=== PATIENT | female | born 1985 | race Caucasian/White ===

== ENCOUNTER → 2017-02-26 15:46 | Emergency (ER) | payer OTHER ==
[~2017-02-26 15:46] MED LIST: Aspirin Low Dose CHEW TAB* 81 MG PO ONE
--- NOTE | 2017-02-26 16:22 | ED ---
Palpitations / Dysrhythmia - HPI Summary HPI Summary: Patient is a 32 yo F who presents to the ED with CC of feelings of palpitations , SOB, anxiety symptoms x 1 week which are intermittent but worsening. Worse with nothing, better with spontaneous resolution. Recently diagnosed with PNA 1 week ago and treated with z-juarez with moderate improvement. Denies travel, denies OCP use. Endorses smoking. Denies weakness, numbness. Denies neurological symptoms or GL[place]. She has had hx of palpitations in the past but notes to history of anxiety and has had similar symptoms, however has never had SOB. Denies chest pain. Denies personal history of cardiac issues, but strong family history including aunt, mother and grandfather with CAD, enlarged heart and DC respectively. Denies urinary symptoms, abdominal pain. Endorses cough, but is often present at baseline d/t smoking history. Denies history of alcohol abuse or hypothyroidism. Denies drug use. Takes clonopin for anxiety. Took 2 tabs today without improvement of palpitations. - History of Current Complaint Chief Complaint: EDShortnessOfBreath Time Seen by Provider: 02/26/17 16:07 Hx Obtained From: Patient Onset/Duration: Gradual Onset Timing: Constant Severity Initially: Severe Severity Currently: Severe Character: Irregular, Fluttering Aggravating: Nothing Alleviating: Nothing Associated Signs & Symptoms: Lightheadedness - Risk Factors Cardiac: Family History Pulmonary Embolism: Smoking Atrial Fibrillation: Negative - Allergy/Home Medications Allergies/Adverse Reactions: Allergies Allergy/AdvReac Type Severity Reaction Status Date / Time No Known Allergies Allergy Verified 02/26/17 15:50 PMH/Surg Hx/FS Hx/Imm Hx Previously Healthy: Yes - Immunization History Hx Pertussis Vaccination: No Immunizations Up to Date: Unable to Obtain/Confirm Infectious Disease History: No Infectious Disease History: Denies: Traveled Outside the [place] in Last 30 Days - Social History Occupation: Employed Full-time Lives: With Family Alcohol Use: None Hx Substance Use: No Substance Use Type: Reports: None Hx Tobacco Use: Yes Smoking Status (MU): Heavy Every Day Tobacco Smoker Type: Cigarettes Review of Systems Positive: Chills. Negative: Fever, Fatigue, Skin Diaphoresis Negative: Photophobia, Blurred Vision, Diplopia Negative: Dental Pain, Sore Throat, Nasal Discharge Positive: Palpitations Positive: Shortness Of Breath, Cough Negative: Abdominal Pain, Vomiting, Diarrhea Genitourinary: Negative Positive: no symptoms reported, see HPI Musculoskeletal: Negative Skin: Negative Neurological: Negative Positive: Anxious All Other Systems Reviewed And Are Negative: Yes Physical Exam Triage Information Reviewed: Yes Vital Signs On Initial Exam: Initial Vitals Temp Pulse Resp BP Pulse Ox 98.1 F 82 16 143/79 100 02/26/17 15:50 02/26/17 15:50 02/26/17 15:50 02/26/17 15:50 02/26/17 15:50 Vital Signs Reviewed: Yes Appearance: Positive: Well-Appearing, Well-Nourished Skin: Positive: Warm, Skin Color Reflects Adequate Perfusion Head/Face: Positive: Normal Head/Face Inspection Eyes: Positive: EOMI, ELGIN, Conjunctiva Clear Neck: Positive: Supple, No Lymphadenopathy Respiratory/Lung Sounds: Positive: Clear to Auscultation, Breath Sounds Present Cardiovascular: Positive: IRR Musculoskeletal: Positive: Strength/ROM Intact Neurological: Positive: Speech Normal Psychiatric: Positive: Normal Diagnostics - Vital Signs Vital Signs Temp Pulse Resp BP Pulse Ox 02/26/17 15:50 98.1 F 82 16 143/79 100 - Laboratory Result Diagrams: 02/26/17 16:25 02/26/17 16:25 Lab Statement: Any lab studies that have been ordered have been reviewed, and results considered in the medical decision making process. Course/Dx - Course Course Of Treatment: During the course of treatment, EKG and chest xray obtained. EKG shows 1 PVC. Otherwise WNL. Chest xray shows no abnormalities. The palpitations could be a reaction to the recent z-juarez prescribed for PNA or a reaction from the PNA. Labs appear to be WNL including trop. d-dimer negative. She will follow up with PCP tomorrow as scheduled and cardiology referral is given. Aspirin withheld d/t 1 week of palpitations with no chest pain. Thyroid panel WNL. History of anxiety and episodes could be d/t recent stressors. - Diagnoses Provider Diagnoses: Palpitations Discharge - Discharge Plan Condition: Stable Disposition: HOME Patient Education Materials: Palpitations (ED) Referrals: Carmen Bright MD [Primary Care Provider] - Marquita Garland MD [Medical Doctor] - Additional Instructions: Follow up with cardiology as needed I have given you a referral Please follow up with your PCP tomorrow and discuss possible side effects to your current medications
[2017-02-26 16:36] LABS: Hematocrit 44 % (35-47); Hemoglobin 15.2 g/dl (12.0-16.0); Mean Corpuscular HGB Conc 35 g/dl (31-36); Mean Corpuscular Hemoglobin 32 pg (27-31); Mean Corpuscular Volume 92 fL (80-97); Mean Platelet Volume 10 um3 (7.4-10.4); Red Blood Count 4.78 10^6/ul (4.0-5.4); Red Cell Distribution Width 14 % (10.5-15); White Blood Count 9.3 10^3/ul (3.5-10.8)
[2017-02-26 16:52] LABS: ALT 10 U/L (7-52); AST 13 U/L (13-39); Albumin 4.8 g/dL (3.2-5.2); Alkaline Phosphatase 66 U/L (34-104); Anion Gap 8 mmol/L (2-11); BUN/Creatinine Ratio 9.3 (8-20); Blood Urea Nitrogen 9 mg/dL (6-24); CO2 Carbon Dioxide 27 mmol/L (22-32); Calcium 9.3 mg/dL (8.6-10.3); Chloride 101 mmol/L (101-111); EGFR African American 85.6 (>60); EGFR Non-African American 66.6 (>60); Globulin 3.2 g/dL (2-4); Glucose 88 mg/dL (70-100); Magnesium 2.1 mg/dL (1.9-2.7); Potassium 3.4 mmol/L (3.5-5.0); Sodium 136 mmol/L (133-145)
[2017-02-26 16:54] LABS: Troponin I 0.01 ng/mL (<0.04)
--- NOTE | 2017-02-26 17:23 | RAD ---
INDICATION: Chest pain. COMPARISON: There are no prior studies available for comparison. TECHNIQUE: A portable view of the chest was obtained. FINDINGS: Cardiac and mediastinal contours appear to be within normal limits. The lungs are clear. No pleural effusion is seen. IMPRESSION: NO EVIDENCE FOR ACUTE DISEASE.
[2017-02-26 17:25] LABS: T4 8.92 mcg/mL (6.09-12.23)
[2017-02-26 17:28] LABS: TSH (Thyroid Stimulating Horm) 0.65 mcIU/mL (0.34-5.60)
[2017-02-26 18:07] VITALS: BP 107/63
== END | disposition home or self-care (01) ==
LOC: ED 15:46
DX: R00.2 Palpitations (principal); F41.9 Anxiety disorder, unspecified; F17.210 Nicotine dependence, cigarettes, uncomplicated
CPT/HCPCS: 36415; 71010; 80053; 82553; 83605; 83735; 84436; 84443; 84484; 84702; 85025; 85379; 93005; 99282

== ENCOUNTER 2017-03-20 00:19 | Emergency (ER) | payer OTHER ==
[2017-03-20 00:26] VITALS: BP 126/70
== END 2017-03-20 01:58 | disposition left against medical advice (07) ==
LOC: ED 00:19
DX: R00.2 Palpitations (principal); Z53.21 Procedure and treatment not carried out due to patient leaving prior to being seen by health care provider

== ENCOUNTER 2018-11-04 17:39 | Emergency (ER) | payer SELFPAY ==
[2018-11-04 17:48] VITALS: BP 123/84
[2018-11-04 18:16] LABS: Urine Appearance Cloudy; Urine Bacteria 2+ (Absent); Urine Bilirubin Negative (Negative); Urine Blood 3+ (Negative); Urine Color Amber; Urine Glucose Negative (Negative); Urine Ketones Negative (Negative); Urine Nitrite Positive (Negative); Urine Protein 1+(30 mg/dL) (Negative); Urine Red Blood Cell 1+(3-5/hpf) (Absent); Urine Specific Gravity 1.016 (1.010-1.030); Urine Squamous Epithelial Cell Present (Absent); Urine Urobilinogen Negative (Negative); Urine White Blood Cell 3+(>20/hpf) (Absent)
--- NOTE | 2018-11-07 09:19 | PN ---
Progress Note - Progress Note Date of Service: 11/04/18 Note: Pt. checked into ER 11/04 for chest pain. U/A was collected in waiting room and culture today growing >100k e. coli. Per nursing report pt. LWBS from waiting room. I called pt.'s PCP office today and spoke with nursing staff. Culture faxed ([phone]) and they will f.u with pt. regarding treatment and f.u.
== END 2018-11-04 18:56 | disposition left against medical advice (07) ==
LOC: ED 17:39
DX: R07.9 Chest pain, unspecified (principal); Z53.21 Procedure and treatment not carried out due to patient leaving prior to being seen by health care provider; N39.0 Urinary tract infection, site not specified; B96.29 Other Escherichia coli [E. coli] as the cause of diseases classified elsewhere
CPT/HCPCS: 81003; 81015; 87077; 87086; 87186; 99282

== ENCOUNTER 2018-11-10 10:24 | Emergency (ER) | payer SELFPAY ==
[2018-11-10 10:48] LABS: ABS Eosinophils 0.2 10^3/ul (0-0.6); ABS Lymphocytes 2.3 10^3/ul (1.0-4.8); ABS Monocytes 0.6 10^3/ul (0-0.8); ABS Neutrophils 8.4 10^3/ul (1.5-7.7); Eosinophil % 1.8 %; Hematocrit 44 % (35-47); Hemoglobin 15.2 g/dL (12.0-16.0); Lymphocyte % 19.6 %; Mean Corpuscular HGB Conc 35 g/dL (31-36); Mean Corpuscular Hemoglobin 32 pg (27-31); Mean Corpuscular Volume 92 fL (80-97); Mean Platelet Volume 9.8 fL (7.4-10.4); Platelet Count 261 10^3/uL (150-450); Red Blood Count 4.76 10^6 /uL (3.70-4.87); Red Cell Distribution Width 14 % (10-15); White Blood Count 11.5 10^3/uL (3.5-10.8)
[2018-11-10 10:58] LABS: INR 1.09 (0.82-1.09)
[2018-11-10 11:09] LABS: ALT 13 U/L (7-52); AST 13 U/L (13-39); Albumin 4.8 g/dL (3.2-5.2); Albumin/Globulin Ratio 1.5 (1-3); Alkaline Phosphatase 74 U/L (34-104); Anion Gap 8 mmol/L (2-11); BUN/Creatinine Ratio 7.7 (8-20); Blood Urea Nitrogen 7 mg/dL (6-24); CO2 Carbon Dioxide 25 mmol/L (22-32); Calcium 9.5 mg/dL (8.6-10.3); Chloride 105 mmol/L (101-111); EGFR African American 86.1 (>60); EGFR Non-African American 71.2 (>60); Globulin 3.1 g/dL (2-4); Glucose 97 mg/dL (70-100); Potassium 3.8 mmol/L (3.5-5.0); Sodium 138 mmol/L (135-145); Total Protein 7.9 g/dL (6.4-8.9)
[2018-11-10 11:14] LABS: HCG Pregnancy < 0.60 mIU/mL
--- NOTE | 2018-11-10 11:33 | ED ---
Complex/Multi-Sys Presentation - HPI Summary HPI Summary: This patient is a 33 year old F presenting to ED who p/w multiple complaints. First patient reports mid sternal CP for 3 days, that feels pressure like. No hx cardiac problems, no hx DVT/PE, not on oral contraceptives. Patient has a history of GERD but missed her appointment for an endoscopy and reports chronic bloating. Patient recently had an US for thyroid nodules and wants to know of the results but hasnt gotten them yet. She states her PCP told her she had a UTI for which she is on keflex and finishing today. In the past few months, patient has had minor weight gain. She also reports boils in her left side w a hx or MRSA. The patient rates her chest pain 6/10 in severity, pressure like, no radiation, no SOB. Symptoms aggravated by nothing. Symptoms alleviated by nothing. Patient reports abdominal bloating, lightheadedness, panic attacks, palpitations, right eye twitching intermittently. She would like neurology f/u for her Chiari malformation but denies current neuro complaints. Patient denies vomiting, diarrhea, constipation, dysuria, SI/HI. - History Of Current Complaint Chief Complaint: EDChestPainROMI Time Seen by Provider: 11/10/18 10:41 Hx Obtained From: Patient Onset/Duration: Lasting Days - 3 days, Still Present Timing: Constant Severity Currently: Moderate Severity Initially: Moderate Location: Pain At: - Mid-sternal Aggravating Factor(s): Nothing Alleviating Factor(s): Nothing Associated Signs And Symptoms: Positive: Abdominal Pain, Other - Positive: abdominal bloating, lightheadedness, panic attacks, palpitations, right eye twitching. Negative: vomiting, diarrhea, constipation, dysuria, SI/HI - Allergies/Home Medications Allergies/Adverse Reactions: Allergies Allergy/AdvReac Type Severity Reaction Status Date / Time levofloxacin [From Levaquin] Allergy Rash Verified 11/04/18 17:50 nitrofurantoin Allergy See Comment Verified 11/04/18 17:50 sulfamethoxazole Allergy Rash Verified 11/04/18 17:50 [From Bactrim] trimethoprim [From Bactrim] Allergy Rash Verified 11/04/18 17:50 Home Medications: Home Medications Albuterol HFA INHALER* [Ventolin HFA Inhaler*] 1 puff INH Q4H PRN 11/10/18 [ History Confirmed 11/10/18] Cholecalciferol TAB* [Vitamin D TAB*] 400 unit PO DAILY 11/10/18 [History Confirmed 11/10/18] FLUoxetine CAP* [PROzac CAP*] 10 mg PO DAILY 11/10/18 [History Confirmed ] Omeprazole 20 mg PO DAILY 11/10/18 [History Confirmed 11/10/18] Ranitidine TAB (NF) [Zantac TAB (NF)] 150 mg PO BID 11/10/18 [History Confirmed 11/10/18] Sucralfate [Carafate] 1 gm PO QID 11/10/18 [History Confirmed 11/10/18] clonazePAM [Klonopin] 0.5 mg PO BID 11/10/18 [History Confirmed 11/10/18] PMH/Surg Hx/FS Hx/Imm Hx Endocrine/Hematology History: Reports: Hx Thyroid Disease - Thyroid nodules GI History: Reports: Hx Gastroesophageal Reflux Disease Sensory History: Denies: Hx Legally Blind, Hx Deafness Opthamlomology History: Denies: Hx Legally Blind EENT History: Denies: Hx Deafness Psychiatric History: Reports: Hx Panic Disorder - Surgical History Surgery Procedure, Year, and Place: cholecystectomy Infectious Disease History: No Infectious Disease History: Denies: Traveled Outside the [place] in Last 30 Days - Family History Known Family History: Positive: Cardiac Disease - [place], cardiomegaly, Diabetes, Other - Stroke - Social History Alcohol Use: None Hx Substance Use: No Substance Use Type: Reports: None Hx Tobacco Use: Yes Smoking Status (MU): Heavy Every Day Tobacco Smoker Type: Cigarettes Review of Systems Eyes: Other - Right eye twitching Positive: Palpitations, Chest Pain - Mid-sternal Gastrointestinal: Negative - Constipation, Other - Abdominal bloating Negative: Vomiting, Diarrhea Negative: dysuria Psychological: Other - Panic attacks Positive: Other - Negative: SI/HI All Other Systems Reviewed And Are Negative: Yes Physical Exam - Summary Physical Exam Summary: Constitutional: Well-developed, Well-nourished, Alert. (-) Distressed Skin: small superficial abscesses distal to the left axilla on lateral chest wall. HENT: Normocephalic; Atraumatic, poor dentition. No thyromegaly Eyes: Conjunctiva normal Neck: Musculoskeletal ROM normal neck. (-) JVD, (-) Stridor, (-) Nuchal rigidity Cardio: Rhythm regular, rate normal, Heart sounds normal; Intact distal pulses; Radial pulses are 2+ and symmetric. (-) Murmur Pulmonary/Chest wall: Effort normal. (-) Respiratory distress, (-) Wheezes, (-) Rales Abd: Soft, (-) tenderness, (-) Distension, (-) Guarding, (-) Rebound Musculoskeletal: (-) Edema Lymph: (-) Cervical adenopathy Neuro: Alert, Oriented x3 Psych: Mood and affect Normal Triage Information Reviewed: Yes Vital Signs On Initial Exam: Initial Vitals Temp Pulse Resp BP Pulse Ox 98.0 F 68 16 134/82 100 11/10/18 10:26 11/10/18 10:26 11/10/18 10:26 11/10/18 10:26 11/10/18 10:26 Vital Signs Reviewed: Yes Diagnostics - Vital Signs Vital Signs Temp Pulse Resp BP Pulse Ox 11/10/18 11:11 60 13 103/54 97 11/10/18 11:07 61 16 92/69 96 11/10/18 11:00 69 13 97 11/10/18 10:58 16 11/10/18 10:36 118/97 11/10/18 10:26 98.0 F 68 16 134/82 100 - Laboratory Lab Results: Lab Results 11/10/18 11/10/18 11/10/18 Range/Units 10:39 10:39 10:39 WBC 11.5 H (3.5-10.8) 10^3/uL RBC 4.76 (3.70-4.87) 10^6 /uL Hgb 15.2 (12.0-16.0) g/dL Hct 44 (35-47) % MCV 92 (80-97) fL MCH 32 H (27-31) pg MCHC 35 (31-36) g/dL RDW 14 (10-15) % Plt Count 261 (150-450) 10^3/uL MPV 9.8 (7.4-10.4) fL Neut % (Auto) 73.1 % Lymph % (Auto) 19.6 % [place] % (Auto) 5.2 % Eos % (Auto) 1.8 % Baso % (Auto) 0.3 % Absolute Neuts (auto) 8.4 H (1.5-7.7) 10^3/ul Absolute Lymphs (auto) 2.3 (1.0-4.8) 10^3/ul Absolute Monos (auto) 0.6 (0-0.8) 10^3/ul Absolute Eos (auto) 0.2 (0-0.6) 10^3/ul Absolute Basos (auto) 0.0 (0-0.2) 10^3/ul Absolute Nucleated RBC 0.0 10^3/ul Nucleated RBC % 0.0 INR (Anticoag Therapy) 1.09 (0.82-1.09) Sodium 138 (135-145) mmol/L Potassium 3.8 (3.5-5.0) mmol/L Chloride 105 (101-111) mmol/L Carbon Dioxide 25 (22-32) mmol/L Anion Gap 8 (2-11) mmol/L BUN 7 (6-24) mg/dL Creatinine 0.91 (0.51-0.95) mg/dL Est GFR ( Amer) 86.1 (>60) Est GFR (Non-Af Amer) 71.2 (>60) BUN/Creatinine Ratio 7.7 L (8-20) Glucose 97 (70-100) mg/dL Calcium 9.5 (8.6-10.3) mg/dL Total Bilirubin 0.60 (0.2-1.0) mg/dL AST 13 (13-39) U/L ALT 13 (7-52) U/L Alkaline Phosphatase 74 (34-104) U/L Troponin I 0.00 (<0.04) ng/mL Total Protein 7.9 (6.4-8.9) g/dL Albumin 4.8 (3.2-5.2) g/dL Globulin 3.1 (2-4) g/dL Albumin/Globulin Ratio 1.5 (1-3) TSH Pending Beta HCG, Quant < 0.60 mIU/mL Result Diagrams: 11/10/18 10:39 11/10/18 10:39 Lab Statement: Any lab studies that have been ordered have been reviewed, and results considered in the medical decision making process. - Radiology CXR Radiology Interpretation Completed By: Radiologist Summary of Radiographic Findings: Elevated lung volumes suggest potential obstructive lung disease. No acute cardiopulmonary process evident. Dr. Sequeira has reviewed this radiology report. - EKG 1028 Cardiac Rate: NL - 67 BPM EKG Rhythm: Sinus Rhythm ST Segment: Normal Ectopy: None EKG Comparison: No Significant Change Summary of EKG Findings: An EKG at 1027 reveals normal sinus rhythm 67 BPM, nml axis, nml intervals. No STEMI. No acute changes. Similar to previous taken 2017. Re-Evaluation - Re-Evaluation First Eval Re-Evaluation Time: 12:40 Comment: labs unremarkable. patient to follow up w PCP and specialists PRN. Clinda sent to pharmacy Complex Multi-Symp Course/Dx Course Of Treatment: 33 year-old female with a history of Chiari malformation, anxiety, GERD who presents with multiple complaints. - chest pressure. Chest Pain DDX: The patient is well appearing, with stable vitals. Given the patient 's clinical presentation, highest on differential is atypical CP. Although less likely, differential also includes the following: --Pneumothorax: Equal breath sounds, story inconsistent since gradual onset of symptoms. CXR shows no evidence of pneumothorax. Unlikely. --Cardiac tamponade: The history and physical are not concerning for tamponade. No Pulsus Paradoxus, no tachypnea. Unlikely. --Mediastinitis or esophageal rupture: The history is not consistent , as the patient has had no recent history of significant wretching, instrumentation, or mediastinal surgeries. Unlikely. --Aortic dissection: The patient does not describe the classical tearing chest pain radiating into the back, and the CXR does not show mediastinal widening or other signs of aortic dissection. Unlikely. --PE: Vitals wnl (not hypoxic, tachycardic or tachypneic) . --ACS: The initial EKG shows no ischemic changes. The initial troponin is not elevated. UTI patient denies complaints, patient finishing Keflex at this time. Thyroid: History of thyroid nodules, check TSH, can follow up in primary care clinic for this. Abscess/cellulitis - several superficial boils to the left lateral chest wall below the axilla, no systemic signs of infection , will send home on clindamycin given history of MRSA. GERD - patient reports history of GERD, missed her most recent endoscopy, will give her GI follow-up. No change in her abdominal pain or GI complaints. Neuro - patient with a history of Chiari malformation, no current neurologic complaints. Will get her neurology follow-up. Anxiety - patient denies SI or HI, will get her mental health follow-up - Diagnoses Provider Diagnoses: GERD (gastroesophageal reflux disease), Chest pain, History of thyroid nodule, Anxiety, Abscess Discharge - Sign-Out/Discharge Documenting (check all that apply): Patient Departure - Discharge Patient Received Moderate/Deep Sedation with Procedure: No - Discharge Plan Condition: Stable Disposition: HOME Prescriptions: Clindamycin Cap(NF) [Clindamycin Cap 300 mg Cap(NF)] 300 mg PO Q6H 7 Days #28 cap Patient Education Materials: Chest Pain (ED), Gastroesophageal Reflux Disease ( ED), Thyroid Nodules (ED), Abscess (ED), Anxiety (ED) Referrals: [facility] [Outside] - 3 Days Sotero Berumen MD [Medical Doctor] - 3 Days Papito Weber MD [Medical Doctor] - 3 Days Evan Cid MD [Medical Doctor] - 3 Days Additional Instructions: You were seen in the emergency department for several things. We will treat you with clindamycin for your cellulitis/abscesses. You can follow-up withour neurologist, staff submarine warfare officer outpatient. We will also give you mental health follow-up. Please follow up with your primary care doctor or [facility] regarding her thyroid. Your thyroid test here was normal If any studies were not completed at the time of discharge you will be called with the relevant results. Please follow up with your primary care doctor in next 2-3 days and return to emergency department for worsening or concerning symptoms. - Billing Disposition and Condition Condition: STABLE Disposition: Home - Attestation Statements Document Initiated by Aydee: Yes Documenting Scribe: Ezekiel Espino Provider For Whom Aydee is Documenting (Include Credential): Cheryl Sequeira MD Scribe Attestation: I, Ezekiel Espino, scribed for Cheryl Sequeira MD on 11/10/18 at 1244. Scribe Documentation Reviewed: Yes Provider Attestation: The documentation as recorded by the [email or web address] accurately reflects the service I personally performed and the decisions made by me, Cheryl Sequeira MD Status of Scribe Document: Viewed
[2018-11-10 12:27] LABS: TSH (Thyroid Stimulating Horm) 0.99 mcIU/mL (0.34-5.60)
[2018-11-10 12:44] VITALS: BP 110/64
== END 2018-11-10 12:58 | disposition home or self-care (01) ==
LOC: ED 10:24
DX: K21.9 Gastro-esophageal reflux disease without esophagitis (principal); F41.9 Anxiety disorder, unspecified; L02.213 Cutaneous abscess of chest wall; E04.2 Nontoxic multinodular goiter; F17.210 Nicotine dependence, cigarettes, uncomplicated; Z79.899 Other long term (current) drug therapy; Z88.1 Allergy status to other antibiotic agents; Z88.2 Allergy status to sulfonamides
CPT/HCPCS: 36415; 71046; 80053; 84443; 84484; 84702; 85025; 85610; 93005; 99283

== ENCOUNTER 2018-11-12 11:10 | Emergency (ER) | payer SELFPAY ==
[2018-11-12 12:23] LABS: Rapid Strep Molecular Negative (Negative)
--- NOTE | 2018-11-12 13:00 | ED ---
Throat Pain/Nasal Congestion - HPI Summary HPI Summary: This patient is a 33 year old F w hx of thyroid nodule, Chiari malformation, anxiety [facility] daughters with a chief complaint of swelling and sore throat since last week, when she came to ED. Patient denies congestion, runny nose. Symptoms aggravated by cough. Per triage, the patient rates the pain 6/10 in severity, achy, worse on L side. No fevers. Smokes tobacco. Patient states she had a normal ultrasound of her thyroid recently, and had negative lab workup several days ago when she was seen in the ED. No trouble swallowing or breathing, does report mild pain when she eats. - History of Current Complaint Chief Complaint: EDThroatPain Time Seen by Provider: 11/12/18 12:23 Hx Obtained From: Patient Onset/Duration: Gradual Onset, Still Present Severity: Moderate Associated Signs And Symptoms: Positive: Negative Cough: Nonproductive - Allergies/Home Medications Allergies/Adverse Reactions: Allergies Allergy/AdvReac Type Severity Reaction Status Date / Time levofloxacin [From Levaquin] Allergy Rash Verified 11/04/18 17:50 nitrofurantoin Allergy See Comment Verified 11/04/18 17:50 sulfamethoxazole Allergy Rash Verified 11/04/18 17:50 [From Bactrim] trimethoprim [From Bactrim] Allergy Rash Verified 11/04/18 17:50 PMH/Surg Hx/FS Hx/Imm Hx Endocrine/Hematology History: Reports: Hx Thyroid Disease - Thyroid nodules GI History: Reports: Hx Gastroesophageal Reflux Disease Sensory History: Denies: Hx Legally Blind, Hx Deafness Opthamlomology History: Denies: Hx Legally Blind Psychiatric History: Reports: Hx Panic Disorder - Surgical History Surgery Procedure, Year, and Place: cholecystectomy Infectious Disease History: No Infectious Disease History: Denies: Traveled Outside the [place] in Last 30 Days - Family History Known Family History: Positive: Cardiac Disease - [place], cardiomegaly, Diabetes, Other - Stroke - Social History Lives: With Family Alcohol Use: None Hx Substance Use: No Substance Use Type: Reports: None Hx Tobacco Use: Yes Smoking Status (MU): Heavy Every Day Tobacco Smoker Type: Cigarettes Review of Systems Positive: Sore Throat. Negative: Nasal Discharge, Other - neg - congestion Positive: Cough All Other Systems Reviewed And Are Negative: Yes Physical Exam - Summary Physical Exam Summary: General: Well appearing, no distress HEENT: PERRL, tonsillar erythema or hypertrophy, uvula midline, mild tenderness to the right pre-auricular cervical lymph node chain and submandibular lymph nodes Cardiovascular: Skin is well perfused Pulmonary: No respiratory distress, no tachypnea Abdomen: Non-distended Skin: Warm, pink, dry MSK: No edema Psych: Normal affect Neuro: A&Ox3 Triage Information Reviewed: Yes Vital Signs On Initial Exam: Initial Vitals Temp Pulse Resp BP Pulse Ox 99 F 89 18 112/81 97 11/12/18 11:19 11/12/18 11:19 11/12/18 11:19 11/12/18 11:19 11/12/18 11:19 Vital Signs Reviewed: Yes Diagnostics - Vital Signs Vital Signs Temp Pulse Resp BP Pulse Ox 11/12/18 11:19 99 F 89 18 112/81 97 - Laboratory Lab Results: Lab Results 11/12/18 Range/Units 12:03 Group A Strep Rapid Negative (Negative) Lab Statement: Any lab studies that have been ordered have been reviewed, and results considered in the medical decision making process. EENT Course/Dx - Course Course Of Treatment: 33-year-old male presents with right-sided sore throat. - Physical exam of the midline uvula, no x-rays on tonsils, no tonsillar hypertrophy, mild tenderness of the preauricular and submandibular lymph nodes. - Stridor, difficulty handling secretions. Strep negative, suspect this could be secondary to a viral infection. Suspect [employer] M[employer]TER or deep space infection. Given PCP f/u and take Motrin at home for pain - Diagnoses Provider Diagnoses: Throat pain in adult Discharge - Sign-Out/Discharge Documenting (check all that apply): Patient Departure - Discharge Patient Received Moderate/Deep Sedation with Procedure: No - Discharge Plan Condition: Stable Disposition: HOME Patient Education Materials: Pharyngitis (ED) Referrals: [facility] [Outside] Additional Instructions: Your strep test is negative. Please return to the emergency department or follow-up with her doctor for worsening pain, trouble breathing, trouble swallowing, fevers or if you are concerned - Billing Disposition and Condition Condition: STABLE Disposition: Home - Attestation Statements Document Initiated by Scribe: Yes Documenting Scribe: Faith Ace Provider For Whom Scribe is Documenting (Include Credential): Dr. Cheryl Sequeira MD Scribe Attestation: IFaith, scribed for Dr. Cheryl Sequeira MD on 11/12/18 at 1742. Scribe Documentation Reviewed: Yes Provider Attestation: The documentation as recorded by the scribe, Faith Ace accurately reflects the service I personally performed and the decisions made by me, Dr. Cheryl Sequeira MD Status of Scribe Document: Viewed
[2018-11-12 13:27] VITALS: BP 107/63
== END 2018-11-12 13:25 | disposition home or self-care (01) ==
LOC: ED 11:10
DX: R07.0 Pain in throat (principal); F17.210 Nicotine dependence, cigarettes, uncomplicated; Q07.00 Arnold-Chiari syndrome without spina bifida or hydrocephalus; E04.1 Nontoxic single thyroid nodule; K21.9 Gastro-esophageal reflux disease without esophagitis
CPT/HCPCS: 87651; 99281

== ENCOUNTER 2018-12-20 11:52 | Emergency (ER) | payer MEDICAID ==
--- OUTSIDE RECORDS SUMMARY | 2018-12-20 12:28 | XMS REPORT | Continuity of Care Document ---
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/26/2018 Social History Type Date Description Comments Sex Unknown ETOH Use Denies alcohol use Tobacco Use Start: Unknown Heavy tobacco smoker (more than 10 cigarettes/day) Recreational Drug Use Denies Drug Use Smoking Status Reviewed: 12/17/18 Heavy tobacco smoker (more than 10 cigarettes/day) Exercise Type/Frequency 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 Allergies, Adverse Reactions, Alerts Active Allergies Reaction Severity Comments Date Nitrofurantoin 11/23/2018 Bactrim 11/23/2018 Levaquin 11/23/2018 Medications Active Medications SIG Qnty Indications Ordering Date Provider Fiber 2 tablets 3 times Sandra Carrillo 12/17/2018 625mg daily CURRICULUM DEVELOPER Tablets Omeprazole 1 by mouth every day 30caps Sandra Carrillo, 11/26/2018 40mg CURRICULUM DEVELOPER Capsules DR Ranitidine 150 2 tablets at hour of 90tabs Sandra Carrillo, 11/26/2018 Maximum Strength sleep as directed CURRICULUM DEVELOPER 150mg Tablets Fluoxetine HCL 1 by mouth every day 30caps F41.9 Malissa Moeller, 2018 (PMDD) DO 20mg Capsules Nicotine 1 patch 14units F17.210 Malissa Sunni, 11/23/2018 transdermally every DO 21mg/24HR Patches day 24HR Nicotrol 2 every 2 hours as 168units F17.210 Malissa Sunni, 11/23/2018 10mg needed DO Inhaler Clonazepam take 1 tablet by 28tabs Pedro Luis Benson MD 0.5mg mouth twice daily Tablets Dispers Vitamin D3 take 1 tablet by Unknown mouth 2 times a day 400Unit Tablets Albuterol Sulfate one puff every 6 Unknown HFA hours 108(90Base) mcg/Act Aerosol History Medications Augmentin 1 by mouth twice 6tabs Malissa Moeller, DO 12/12/2018 - 500-125mg per day 12/12/2018 Tablets Fluoxetine HCL (PMDD) 1 by mouth every 30caps Malissa Moeller, DO 2018 - day 11/23/2018 10mg Capsules Immunizations Description No Information Available Vital Signs Date Vital Result Comment 12/17/2018 9:08am Height 70 inches 5'10" Weight 213.00 lb Heart Rate 74 /min BP Systolic 107 mmHg BP Diastolic 71 mmHg O2 % BldC Oximetry 97 % BMI (Body Mass Index) 30.6 kg/m2 11/26/2018 3:24pm Height 70 inches 5'10" Weight 213.00 lb Heart Rate 77 /min BP Systolic 121 mmHg BP Diastolic 80 mmHg O2 % BldC Oximetry 98 % BMI (Body Mass Index) 30.6 kg/m2 Results Test Date Facility Test Result H/L Range Note Urine Culture And 12/11/2018 [facility] Urine Culture SEE RESULT [address] [place] [address] [phone] Ua Routine 12/11/2018 [facility] Ua Specific 1.025 Frederick Ua PH 5 Ua Color light brown Ua Appera cloudy Ua WBC ++ Ua Protein trace Ua Glucose neg Ua Ketones neg Ua Bilirubin ++ Ua Urobilinogen neg Ua Nitrite + Ua Occult Blood 250 Justin/ul 1 SEE RESULT BELOW Name: RAGINI AGUILA : [address]: Malissa Moeller DO Acct: [id number] Unit: [id number] AGE: 33 Location: [facility] Re12/11/18 SEX: F Status: REG REF SPEC: [id number] JOSE ALBERTO: 12/11/18-1412 [facility] DR: Malissa Moeller DO REQ: [id number] RECD: 12/11/18 STATUS: COMP _ SOURCE: URINE SPDESC: ORDERED: Urine Culture COMMENTS: [id number] Urine Source: Random Procedure Result Reported Site Urine Culture Final 12/13/18- 0638 ML Organism 1 ESCHERICHIA COLI [place] Count >100,000 (Many) CFU/ML Organism 2 NORMAL RAMIRO [place] Count 10-25,000 (Moderate) CFU/ML 1. ESCHERICHIA COLI [facility] RX --------- ------ Ampicillin 16 I Cefazolin <=4 S Cefepime <=1 S Ceftriaxone <=1 S Ciprofloxacin <=0.25 S Gentamicin <=1 S Levofloxacin <=0.12 S Meropenem <=0.25 S Nitrofurantoin <=16 S Tetracycline 4 S Pipercillin/Tazobactam 8 S Trimethoprim/Sulfamethoxazole <=20 S Amoxicillin/Clavulanic Acid 4 S Aztreonam <=1 S Contact the Microbiology Department for any additional antibiotic reporting. * ML - Main Lab . END OF REPORT DEPARTMENT OF PATHOLOGY, [address] [place] [address] Jerson Davila M.D. 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 F17.210 Nicotine dependence, cigarettes, uncomplicated R13.10 Dysphagia, unspecified Office Visit 11/23/2018 11:20a [facility] Internal Malissa Q04.8 Other specified Medicine - DO radha Moeller [address] malformations of brain F41.9 Anxiety disorder, unspecified E04.1 Nontoxic single thyroid nodule F17.210 Nicotine dependence, cigarettes, uncomplicated Assessments Date Code Description Provider 12/11/2018 N39.0 Urinary tract infection, site not specified Nurse Visit [place] 11/26/2018 K21.0 Gastro-esophageal reflux disease with Sandra Carrillo NP esophagitis 11/26/2018 F41.9 Anxiety disorder, unspecified Sandra Carrillo, CURRICULUM DEVELOPER 11/26/2018 E04.1 Nontoxic single thyroid nodule Sandra Carrillo, CURRICULUM DEVELOPER 11/26/2018 Q04.8 Other specified congenital malformations of Sandra Carrillo, CURRICULUM DEVELOPER brain 11/26/2018 F17.210 Nicotine dependence, cigarettes, uncomplicated Sandra Carrillo, CURRICULUM DEVELOPER 11/26/2018 R13.10 Dysphagia, unspecified Sandra Carrillo, CURRICULUM DEVELOPER 11/23/2018 Q04.8 Other specified congenital malformations of Malissa Moeller , DO brain 11/23/2018 F41.9 Anxiety disorder, unspecified Malissa Senchau, DO 11/23/2018 E04.1 Nontoxic single thyroid nodule Malissa Moeller, DO 11/23/2018 F17.210 Nicotine dependence, cigarettes, uncomplicated Malissa Moeller, DO Plan of Treatment Future Appointment(s):05/10/2019 9:00 am - Joey Riggins M.D. at [facility]/21/2018 9:00 am - Malissa Moeller DO at [facility] Internal Medicine - [address]/26/2018 - Sandra Carrillo, NPK21.0 Gastro-esophageal reflux disease with esophagitisComments:Please make a two week appointment.Thank you for using ELEMENTARY EDUCATOR GI.F41.9 Anxiety disorder, unspecifiedComments:Please make a two week appointment.Thank you for using ELEMENTARY EDUCATOR GI.E04.1 Nontoxic single thyroid noduleComments:Please make a two week appointment.Thank you for using ELEMENTARY EDUCATOR GI.Q04.8 Other specified congenital malformations of brainComments:Please make a two week appointment.Thank you for using ELEMENTARY EDUCATOR GI.F17.210 Nicotine dependence, cigarettes, uncomplicatedComments:Please make a two week appointment.Thank you for using ELEMENTARY EDUCATOR GI.R13.10 Dysphagia, unspecifiedComments:Please make a two week appointment.Thank you for using ELEMENTARY EDUCATOR GI. Functional Status Description No Information Available Mental Status Description No Information Available Referrals Refer to Reason for Referral Status Appt Date Joey Riggins MD Sent 05/10/2018 [address] [facility] [place] [address] [place] [address] [phone] [facility] Sent [address] [place] [address] [phone]
--- OUTSIDE RECORDS SUMMARY | 2018-12-20 12:28 | XMS REPORT | Continuity of Care Document ---
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 [phone] Problems Description No Information Available Social History Type Date Description Comments Sex Unknown ETOH Use Denies alcohol use Tobacco Use Start: Unknown Heavy tobacco smoker (more than 10 cigarettes/day) Recreational Drug Use Denies Drug Use Smoking Status Reviewed: 11/26/18 Heavy tobacco smoker (more than 10 cigarettes/day) Exercise Type/Frequency 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 Allergies, Adverse Reactions, Alerts Active Allergies Reaction Severity Comments Date Nitrofurantoin 11/23/2018 Bactrim 11/23/2018 Levaquin 11/23/2018 Medications Active Medications SIG Qnty Indications Ordering Date Provider Omeprazole 1 by mouth every day 30caps Sandra Carrillo, 11/26/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 Ranitidine 150 2 tablets at hour of 90tabs Sandra Carrillo, 11/26/2018 Maximum Strength sleep as directed 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 150mg Tablets Fluoxetine HCL 1 by mouth every day 30caps F41.9 Malissa Moeller, 2018 (PMDD) DO 20mg Capsules Nicotine 1 patch 14units F17.210 Malissa Moeller, 11/23/2018 transdermally every DO 21mg/24HR Patches day 24HR Nicotrol 2 every 2 hours as 168units F17.210 Malissa Moeller, 11/23/2018 10mg needed DO Inhaler Sucralfate take one tablet by Unknown 1gm mouth four times a Tablets day Clonazepam take 1 tablet by Unknown 0.5mg mouth twice daily Tablets Dispers Vitamin D3 take 1 tablet by Unknown mouth 2 times a day 400Unit Tablets Albuterol Sulfate one puff every 6 Unknown HFA hours 108(90Base) mcg/Act Aerosol History Medications Fluoxetine HCL (PMDD) 1 by mouth every 30caps Malissa Moeller DO 2018 - day 11/23/2018 10mg Capsules Immunizations Description No Information Available Vital Signs Date Vital Result Comment 11/26/2018 3:24pm Height 70 inches 5'10" Weight 213.00 lb Heart Rate 77 /min BP Systolic 121 mmHg BP Diastolic 80 mmHg O2 % BldC Oximetry 98 % BMI (Body Mass Index) 30.6 kg/m2 11/23/2018 11:06am Height 70 inches 5'10" Weight 213.12 lb Heart Rate 66 /min BP Systolic 118 mmHg BP Diastolic 79 mmHg Body Temperature 97.4 F O2 % BldC Oximetry 97 % BMI (Body Mass Index) 30.6 kg/m2 Results Description No Information Available Procedures Description No Information Available Medical Devices Description No Information Available Encounters Description No Information Available Assessments Date Code Description Provider 11/23/2018 Q04.8 Other specified congenital malformations of Malissa Moeller DO brain 11/23/2018 F41.9 Anxiety disorder, unspecified Malissa Meoller DO 11/23/2018 E04.1 Nontoxic single thyroid nodule Malissa Moeller DO 11/23/2018 F17.210 Nicotine dependence, cigarettes, uncomplicated Malissa Moeller DO Plan of Treatment Future Appointment(s):12/13/2018 10:15 am - Sandra Carrillo NP at [id number]/20/2019 9:00 am - Malissa Moeller DO at [facility] Internal Medicine - [address] Functional Status Description No Information Available Mental Status Description No Information Available Referrals Refer to Reason for Referral Status Appt Date Joey Riggins MD Sent [address] [place], [place] [id number] [phone] [facility] Sent [address] [place] [address] [phone]
[2018-12-20 12:34] LABS: Urine Appearance Turbid; Urine Bacteria 1+ (Absent); Urine Bilirubin Negative (Negative); Urine Blood 3+ (Negative); Urine Color Amber; Urine Glucose Negative (Negative); Urine Ketones Negative (Negative); Urine Nitrite Positive (Negative); Urine Protein 2+(100 mg/dL) (Negative); Urine Red Blood Cell 3+(>10/hpf) (Absent); Urine Specific Gravity 1.019 (1.010-1.030); Urine Squamous Epithelial Cell Present (Absent); Urine Urobilinogen Negative (Negative); Urine White Blood Cell 3+(>20/hpf) (Absent)
[2018-12-20 13:39] LABS: ABS Eosinophils 0.3 10^3/ul (0-0.6); ABS Lymphocytes 2.4 10^3/ul (1.0-4.8); ABS Monocytes 0.6 10^3/ul (0-0.8); ABS Neutrophils 6.6 10^3/ul (1.5-7.7); Eosinophil % 2.6 %; Hematocrit 40 % (35-47); Hemoglobin 13.6 g/dL (12.0-16.0); Lymphocyte % 24.5 %; Mean Corpuscular HGB Conc 34 g/dL (31-36); Mean Corpuscular Hemoglobin 32 pg (27-31); Mean Corpuscular Volume 93 fL (80-97); Mean Platelet Volume 9.7 fL (7.4-10.4); Platelet Count 265 10^3/uL (150-450); Red Blood Count 4.27 10^6 /uL (3.70-4.87); Red Cell Distribution Width 14 % (10-15); White Blood Count 9.9 10^3/uL (3.5-10.8)
[2018-12-20 14:04] LABS: ALT 13 U/L (7-52); AST 13 U/L (13-39); Albumin 4.3 g/dL (3.2-5.2); Albumin/Globulin Ratio 1.7 (1-3); Alkaline Phosphatase 65 U/L (34-104); Anion Gap 7 mmol/L (2-11); BUN/Creatinine Ratio 9.4 (8-20); Blood Urea Nitrogen 8 mg/dL (6-24); CO2 Carbon Dioxide 25 mmol/L (22-32); Calcium 9.2 mg/dL (8.6-10.3); Chloride 107 mmol/L (101-111); EGFR African American 93.2 (>60); Globulin 2.5 g/dL (2-4); Glucose 72 mg/dL (70-100); Potassium 3.6 mmol/L (3.5-5.0); Sodium 139 mmol/L (135-145); Total Protein 6.8 g/dL (6.4-8.9)
[2018-12-20 14:11] LABS: HCG Pregnancy < 0.60 mIU/mL
--- NOTE | 2018-12-20 14:29 | ED ---
GI/ HPI - HPI Summary HPI Summary: This patient is a 33 year old F w hx recurrent UTI's presenting to [facility] accompanied by son with a chief complaint of dysuria and suprapubic pain since . Patient states that she was prescribed Cipro and Augmentin for a UTI since November 2018 with no relief. Patient states that she finished her antibiotics 12/15/18. The patient rates the pain 6/10 in severity. Symptoms alleviated by nothing. Patient reports "hot flashes", chills, and dysuria. Patient denies EtOH use and substance abuse. Hx malpositioned kidney, was admitted for UTI 3 years ago. Does not follow w urologist. Possible remote hx kidney stones. Allergies Allergy/AdvReac Type Severity Reaction Status Date / Time levofloxacin [From Levaquin] Allergy Rash Verified 12/20/18 12:02 nitrofurantoin Allergy Tachycardia Verified 12/20/18 12:02 sulfamethoxazole Allergy Rash Verified 12/20/18 12:02 [From Bactrim] trimethoprim [From Bactrim] Allergy Rash Verified 12/20/18 12:02 Home Medications Medication Instructions Recorded Confirmed Type Albuterol HFA INHALER* [Ventolin 1 puff INH Q4H PRN 11/10/18 12/19/18 History HFA Inhaler*] Cholecalciferol TAB* [Vitamin D 400 unit PO BID 11/10/18 12/19/18 History TAB*] FLUoxetine CAP* [PROzac CAP*] 20 mg PO DAILY 11/10/18 12/19/18 History Omeprazole 40 mg PO DAILY 11/10/18 12/19/18 History Ranitidine TAB (NF) [Zantac TAB 150 mg PO BID 11/10/18 12/19/18 History (NF)] Sucralfate [Carafate] 1 gm PO QID 11/10/18 12/19/18 History clonazePAM [Klonopin] 0.5 mg PO BID 11/10/18 12/19/18 History Calcium Polycarbophil TAB* 1,250 mg PO TID 12/19/18 12/19/18 History [Fibercon TAB*] Nicotine PATCH 21 MG/24 HR* 21 mg TRANSDERM DAILY 12/19/18 12/19/18 History Nicotrol Inhaler 2 spray INH Q2H PRN 12/19/18 12/19/18 History Peppermint Oil [Ibgard] 90 mg PO DAILY 12/19/18 12/19/18 History Cephalexin CAP* [Keflex CAP*] 500 mg PO QID 7 Days #28 cap 12/20/18 Rx - History of Current Complaint Chief Complaint: EDUrogenitalProblems Time Seen by Provider: 12/20/18 13:15 Stated Complaint: UTI WITH ECOLI PER PT Hx Obtained From: Patient Timing: Constant Current Severity: Moderate Pain Intensity: 6 Location of Pain: Suprapubic Additional Location for Females: Uterus Pain Characteristics: Burning Associated Signs and Symptoms: Positive: Dysuria, UTI Symptoms Aggravating Factor(s): Nothing Alleviating Factor(s): Nothing - Allergy/Home Medications Allergies/Adverse Reactions: Allergies Allergy/AdvReac Type Severity Reaction Status Date / Time levofloxacin [From Levaquin] Allergy Rash Verified 12/20/18 12:02 nitrofurantoin Allergy Tachycardia Verified 12/20/18 12:02 sulfamethoxazole Allergy Rash Verified 12/20/18 12:02 [From Bactrim] trimethoprim [From Bactrim] Allergy Rash Verified 12/20/18 12:02 PMH/Surg Hx/FS Hx/Imm Hx Endocrine/Hematology History: Reports: Hx Thyroid Disease - Thyroid nodules GI History: Reports: Hx Gastroesophageal Reflux Disease Sensory History: Denies: Hx Legally Blind, Hx Deafness Opthamlomology History: Denies: Hx Legally Blind Psychiatric History: Reports: Hx Panic Disorder - Surgical History Surgery Procedure, Year, and Place: cholecystectomy Infectious Disease History: No Infectious Disease History: Denies: Traveled Outside the [place] in Last 30 Days - Family History Known Family History: Positive: Cardiac Disease - [place], cardiomegaly, Diabetes, Other - Stroke - Social History Alcohol Use: None Hx Substance Use: No Substance Use Type: Reports: None Hx Tobacco Use: Yes Smoking Status (MU): Heavy Every Day Tobacco Smoker Type: Cigarettes Review of Systems Negative: Fever Positive: Abdominal Pain - suprapubic Positive: burning, dysuria All Other Systems Reviewed And Are Negative: Yes Physical Exam - Summary Physical Exam Summary: Constitutional: Well-developed, Well-nourished, Alert. (-) Distressed Skin: Warm, Dry HENT: Normocephalic; Atraumatic Eyes: Conjunctiva normal Neck: Musculoskeletal ROM normal neck. (-) JVD, (-) Stridor, (-) Nuchal rigidity Cardio: Rhythm regular, rate normal, Heart sounds normal; Intact distal pulses; Radial pulses are 2+ and symmetric. (-) Murmur Pulmonary/Chest wall: Effort normal. (-) Respiratory distress, (-) Wheezes, (-) Rales Abd: Soft, Bilateral flank tenderness, (-) Distension, (-) Guarding, (-) Rebound Musculoskeletal: (-) Edema Lymph: (-) Cervical adenopathy Neuro: Alert, Oriented x3 Psych: Mood and affect Normal GI/: Suprapubic tenderness Triage Information Reviewed: Yes Vital Signs On Initial Exam: Initial Vitals Temp Pulse Resp BP Pulse Ox 98.6 F 72 18 136/77 99 12/20/18 12:01 12/20/18 12:01 12/20/18 12:01 12/20/18 12:01 12/20/18 12:01 Vital Signs Reviewed: Yes Diagnostics - Vital Signs Vital Signs Temp Pulse Resp BP Pulse Ox 12/20/18 12:01 98.6 F 72 18 136/77 99 - Laboratory Lab Results: Lab Results 12/20/18 12/20/18 12/20/18 Range/Units 12:00 13:26 13:28 WBC 9.9 (3.5-10.8) 10^3/uL RBC 4.27 (3.70-4.87) 10^6 /uL Hgb 13.6 (12.0-16.0) g/dL Hct 40 (35-47) % MCV 93 (80-97) fL MCH 32 H (27-31) pg MCHC 34 (31-36) g/dL RDW 14 (10-15) % Plt Count 265 (150-450) 10^3/uL MPV 9.7 (7.4-10.4) fL Neut % (Auto) 66.7 % Lymph % (Auto) 24.5 % [place] % (Auto) 5.7 % Eos % (Auto) 2.6 % Baso % (Auto) 0.5 % Absolute Neuts (auto) 6.6 (1.5-7.7) 10^3/ul Absolute Lymphs (auto) 2.4 (1.0-4.8) 10^3/ul Absolute Monos (auto) 0.6 (0-0.8) 10^3/ul Absolute Eos (auto) 0.3 (0-0.6) 10^3/ul Absolute Basos (auto) 0.0 (0-0.2) 10^3/ul Absolute Nucleated RBC 0.0 10^3/ul Nucleated RBC % 0.0 Sodium 139 (135-145) mmol/L Potassium 3.6 (3.5-5.0) mmol/L Chloride 107 (101-111) mmol/L Carbon Dioxide 25 (22-32) mmol/L Anion Gap 7 (2-11) mmol/L BUN 8 (6-24) mg/dL Creatinine 0.85 (0.51-0.95) mg/dL Est GFR ( Amer) 93.2 (>60) Est GFR (Non-Af Amer) 77.0 (>60) BUN/Creatinine Ratio 9.4 (8-20) Glucose 72 (70-100) mg/dL Calcium 9.2 (8.6-10.3) mg/dL Total Bilirubin 0.30 (0.2-1.0) mg/dL AST 13 (13-39) U/L ALT 13 (7-52) U/L Alkaline Phosphatase 65 (34-104) U/L Total Protein 6.8 (6.4-8.9) g/dL Albumin 4.3 (3.2-5.2) g/dL Globulin 2.5 (2-4) g/dL Albumin/Globulin Ratio 1.7 (1-3) Beta HCG, Quant < 0.60 mIU/mL Urine Color Loren Urine Appearance Turbid Urine pH 6.0 (5-9) Ur Specific [place] 1.019 (1.010-1.030) Urine Protein 2+(100 mg/dl) A (Negative) Urine Ketones Negative (Negative) Urine Blood 3+ A (Negative) Urine Nitrate Positive A (Negative) Urine Bilirubin Negative (Negative) Urine Urobilinogen Negative (Negative) Ur Leukocyte Esterase 2+ A (Negative) Urine WBC (Auto) 3+(>20/hpf) A (Absent) Urine RBC (Auto) 3+(>10/hpf) A (Absent) Ur Squamous Epith Cells Present A (Absent) Urine Bacteria 1+ A (Absent) Urine Glucose Negative (Negative) Result Diagrams: 12/20/18 13:26 12/20/18 13:28 Lab Statement: Any lab studies that have been ordered have been reviewed, and results considered in the medical decision making process. - Ultrasound Abdomen/Bladder US Ultrasound Interpretation Completed By: Radiologist Summary of Ultrasound Findings: Abdominal/Bladder US reveals, per radiologist, IMPRESSION: Unremarkable renal and bladder sonogram. ED Physician has reviewed this report. Re-Evaluation - Re-Evaluation First Eval Change: Improved - US normal aside from malpositioned L kidney (chronic), given ceftriaxone here and to be sent home on keflex GIGU Course/Dx - Course Course Of Treatment: 33-year-old female with a history of a left kidney malformation/positioning, recurrent E coli UTIs presents with dysuria. - no systemic signs of infection. Given recurrent UTIs will discuss with urology, likely obtain imaging. - Diagnoses Provider Diagnoses: UTI (urinary tract infection) - Additional Visit Information Is Visit Related: No - Physician Notifications Discussed Care Of Patient With: Judson Cardona Instructed by Provider To: Other - recommends US kidneys and IV antibiotics. She can get discharged on an antibiotic she has not been on before that her E Coli is sensitive to. She can follow up w her PCP and with urology PRN Discharge ED - Sign-Out/Discharge Documenting (check all that apply): Patient Departure - discharge Patient Received Moderate/Deep Sedation with Procedure: No - Discharge Plan Condition: Stable Disposition: HOME Prescriptions: Cephalexin CAP* [Keflex CAP*] 500 mg PO QID 7 Days #28 cap Patient Education Materials: Urinary Tract Infection in Women (ED) Referrals: Malissa Moeller DO [Primary Care Provider] - 2 Days Additional Instructions: You were seen in the emergency department for recurrent urinary tract infection. Please take keflex 4 times per day for 7 days If any studies were not completed at the time of discharge you will be called with the relevant results. Please follow up with your primary care doctor in next 2-3 days and return to emergency department for worsening or concerning symptoms. It was a pleasure taking care of you today. - Billing Disposition and Condition Condition: STABLE Disposition: Home - Attestation Statements Document Initiated by Scribe: Yes Documenting Scribe: Yolanda Salguero Provider For Whom Scribe is Documenting (Include Credential): Dr. Cheryl Sequeira MD Scribe Attestation: I, Yolanda Salguero , scribed for Dr. Cheryl Sequeira MD on 12/20/18 at 2250. Scribe Documentation Reviewed: Yes Provider Attestation: The documentation as recorded by the scribe, Yolanda Salguero accurately reflects the service I personally performed and the decisions made by me, Dr. Cheryl Sequeira MD Status of Scribe Document: Viewed
[2018-12-20] MEDS ORDERED: cefTRIAXone(*) 1 GM in NS 0.9% 50 ML* 50 ML IVPB ONE (15:26)
[2018-12-20 16:20] VITALS: BP 120/74
== END 2018-12-20 16:19 | disposition home or self-care (01) ==
LOC: ED 11:52
DX: N39.0 Urinary tract infection, site not specified (principal); E04.2 Nontoxic multinodular goiter; K21.9 Gastro-esophageal reflux disease without esophagitis; Z90.49 Acquired absence of other specified parts of digestive tract; F17.210 Nicotine dependence, cigarettes, uncomplicated; Z79.899 Other long term (current) drug therapy; Z88.1 Allergy status to other antibiotic agents; Z88.2 Allergy status to sulfonamides; Z88.8 Allergy status to other drugs, medicaments and biological substances
CPT/HCPCS: 36415; 76770; 80053; 81003; 81015; 84702; 85025; 87077; 87086; 87186; 96365; 99283; J0696

== ENCOUNTER 2019-01-29 11:30 | Emergency (ER) | payer OTHER ==
[2019-01-29] MEDS ORDERED: Aspirin TAB* 325 MG PO ONE (11:42)
[2019-01-29] MEDS ORDERED: Al Hydrox/Mg Hydrox/Simet LIQ* 30 ML UDC PO ONE (11:42)
[2019-01-29] MEDS ORDERED: Lidocaine 2% VISCOUS* 15 ML UDC PO ONE (11:42)
[2019-01-29 11:57] LABS: ABS Eosinophils 0.1 10^3/ul (0-0.6); ABS Lymphocytes 2.9 10^3/ul (1.0-4.8); ABS Monocytes 0.5 10^3/ul (0-0.8); ABS Neutrophils 6.7 10^3/ul (1.5-7.7); Eosinophil % 1.3 %; Hematocrit 43 % (35-47); Hemoglobin 14.7 g/dL (12.0-16.0); Mean Corpuscular HGB Conc 35 g/dL (31-36); Mean Corpuscular Hemoglobin 32 pg (27-31); Mean Corpuscular Volume 92 fL (80-97); Mean Platelet Volume 9.1 fL (7.4-10.4); Platelet Count 302 10^3/uL (150-450); Red Blood Count 4.64 10^6 /uL (3.70-4.87); Red Cell Distribution Width 13 % (10-15); White Blood Count 10.3 10^3/uL (3.5-10.8)
--- OUTSIDE RECORDS SUMMARY | 2019-01-29 11:58 | XMS REPORT | Continuity of Care Document ---
:1985 External Reference #:[id number] Author Name Malissa Moeller DO (transmitted by agent of provider Paradise Adams) Address [address] [place] [address] Care Team Providers Name Role Phone Malissa Moeller DO - Hospitalist Care Team Information Special Services Coordinator [phone] Problems Active Problems Provider Date Gastroesophageal reflux disease Sandra Carrillo NP Onset: 11/26/2018 Anxiety state Sandra Carrillo NP Onset: 11/26/2018 Tobacco user Sandra Carrillo NP Onset: 11/26/2018 Congenital anomaly of brain Sandra Carrillo NP Onset: 11/26/2018 Methicillin resistant Staphylococcus aureus Sandra Carrillo NP Onset: 2018 Social History Type Date Description Comments Sex Unknown ETOH Use Denies alcohol use Tobacco Use Start: Unknown Heavy tobacco smoker (more than 10 cigarettes/day) Recreational Drug Use Denies Drug Use Smoking Status Reviewed: 12/21/18 Heavy tobacco smoker (more than 10 cigarettes/day) Exercise Type/Frequency 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 Allergies, Adverse Reactions, Alerts Active Allergies Reaction Severity Comments Date Nitrofurantoin tachycardia 11/23/2018 Bactrim rash 11/23/2018 Levaquin rash 11/23/2018 Medications Active Medications SIG Qnty Indications Ordering Date Provider Nitrofurantoin take one daily as 30caps N39.0 Malissa 12/21/2018 Macrocrystal needed right after DO Sunni 100mg sex Capsules Depo-Provera inject 1ml Im every 3ml Z30.09 Malissa 12/21/2018 150mg/ml 3 months DO Sunni Suspension Fiber 2 tablets 3 times Sandra Carrillo 12/17/2018 625mg Tablets daily [employer] MARK[employer] VP Ibgard samples given 4caps Sandra Carrillo, 12/17/2018 90mg Capsules ER [employer] VP Omeprazole 1 by mouth every 30caps Sandra Carrillo, 11/26/2018 40mg day [employer] VP Capsules DR Ranitidine 150 2 tablets at hour 90tabs Sandra Carrillo, 11/26/2018 Maximum Strength of sleep as GROUP MARKETING VP 150mg directed Tablets Fluoxetine HCL (PMDD) 2 by mouth every 60caps F41.9 Malissa 11/23/2018 day Senner, DO 20mg Capsules Nicotine 1 patch 14units F17.210 Malissa 11/23/2018 21mg/24HR transdermally every Senner, DO Patches 24HR day Nicotrol 2 every 2 hours as 168units F17.210 Malissa 11/23/2018 10mg Inhaler needed Senner, DO Clonazepam take 1 tablet by 28tabs Pedro Luis Benson MD 0.5mg mouth twice daily Tablets Dispers Vitamin D3 take 1 tablet by Unknown 400Unit mouth 2 times a day Tablets Albuterol Sulfate HFA one puff every 6 Unknown hours 108(90Base) mcg/Act Aerosol Keflex 1 tab by mouth four Unknown 500mg Capsules times a day History Medications Augmentin 1 by mouth twice 6tabs Malissa Moeller DO 12/12/2018 - 500-125mg per day 12/12/2018 Tablets Fluoxetine HCL (PMDD) 1 by mouth every 30caps Malissa Moeller DO 2018 - day 11/23/2018 10mg Capsules Immunizations Description No Information Available Vital Signs Date Vital Result Comment 12/21/2018 9:04am Height 70 inches 5'10" Weight 212.50 lb With shoes Heart Rate 68 /min BP Systolic 113 mmHg LA sitting BP Diastolic 76 mmHg LA sitting Body Temperature 96.8 F O2 % BldC Oximetry 97 % BMI (Body Mass Index) 30.5 kg/m2 12/17/2018 9:08am Height 70 inches 5'10" Weight 213.00 lb Heart Rate 74 /min BP Systolic 107 mmHg BP Diastolic 71 mmHg O2 % BldC Oximetry 97 % BMI (Body Mass Index) 30.6 kg/m2 Results Test Date Facility Test Result H/L Range Note CBC Auto 12/20/2018 [facility] White Blood 9.9 10^3/uL Normal 3.5-10.[address] [place], [place] [address] [phone] Red Blood Count 4.27 10^6/uL Normal 3.70-4.87 Hemoglobin 13.6 g/dL Normal 12.0-16.0 Hematocrit 40 % Normal 35-47 Mean Corpuscular Volume 93 fL Normal 80-97 Mean Corpuscular Hemoglobin 32 pg High 27-31 Mean Corpuscular HGB Conc 34 g/dL Normal 31-36 Red Cell Distribution Width 14 % Normal 10-15 Platelet Count 265 10^3/uL Normal 150-450 Mean Platelet Volume 9.7 fL Normal 7.4-10.4 Abs Neutrophils 6.6 10^3/uL Normal 1.5-7.7 Abs Lymphocytes 2.4 10^3/uL Normal 1.0-4.8 Abs Monocytes 0.6 10^3/uL Normal 0-0.8 Abs Eosinophils 0.3 10^3/uL Normal 0-0.6 Abs Basophils 0.0 10^3/uL Normal 0-0.2 Abs Nucleated RBC 0.0 10^3/uL Granulocyte % 66.7 % Lymphocyte % 24.5 % Monocyte % 5.7 % Eosinophil % 2.6 % Basophil % 0.5 % Nucleated Red Blood Cells % 0.0 Urine Culture And 12/11/2018 [facility] Urine Culture SEE RESULT [address] [place] [address] [phone] Ua Routine 12/11/2018 Predictive Maintenance Technician In House Ua Specific 1.025 Fleming Ua PH 5 Ua Color light brown Ua Appera cloudy Ua WBC ++ Ua Protein trace Ua Glucose neg Ua Ketones neg Ua Bilirubin ++ Ua Urobilinogen neg Ua Nitrite + Ua Occult Blood 250 Justin/ul 1 SEE RESULT BELOW Name: RAGINI AGUILA : [address]: Malissa Moeller DO Acct: [id number] Unit: [id number] AGE: 33 Location: [facility] Re12/11/18 SEX: F Status: REG REF SPEC: [id number] JOSE ALBERTO: 12/11/18-[address]: Malissa Moeller DO REQ: [id number] RECD: 12/11/18 STATUS: COMP _ SOURCE: URINE SPDESC: ORDERED: Urine Culture COMMENTS: [id number] Urine Source: Random Procedure Result Reported Site Urine Culture Final 12/13/18- 0638 ML Organism 1 ESCHERICHIA COLI Turner Count >100,000 (Many) CFU/ML Organism 2 NORMAL RAMIRO Turner Count 10-25,000 (Moderate) CFU/ML 1. ESCHERICHIA COLI [...] . END OF REPORT DEPARTMENT OF PATHOLOGY, [address] [place] [address] Jerson Davila M.D. Director [facility] # [id number] Procedures Description No Information Available Medical Devices Description No Information Available Encounters Type Date Location Provider Dx Diagnosis Office Visit 12/21/2018 [facility] Internal Malissa Moeller, F41.9 Anxiety disorder, 9:00a Medicine - Suite DO unspecified R K21.9 Gastro-esophageal reflux disease without esophagitis N39.0 Urinary tract infection, site not specified Z30.09 Encounter for oth general coun and advice on contraception Z12.4 Encounter for screening for malignant neoplasm of cervix Office 12/17/2018 [facility] Gastroenterology Sandra K21.9 Gastro-esophageal Visit 9:00a PRINCE Carrillo reflux disease without esophagitis R14.0 Abdominal distension (gaseous) F41.9 Anxiety disorder, unspecified Office 11/26/2018 [facility] Gastroenterology Sandra K21.0 Gastro-esophageal Visit 3:00p PRINCE Carrillo reflux disease with esophagitis F41.9 Anxiety disorder, unspecified 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 F17.210 Nicotine dependence, cigarettes, uncomplicated R13.10 Dysphagia, unspecified Office Visit 11/23/2018 11:20a [facility] Internal Malissa Q04.8 Other specified Medicine - DO Sunni congenital Suite R malformations of brain F41.9 Anxiety disorder, unspecified E04.1 Nontoxic single thyroid nodule F17.210 Nicotine dependence, cigarettes, uncomplicated Assessments Date Code Description Provider 12/21/2018 F41.9 Anxiety disorder, unspecified Malissa Moeller, DO 12/21/2018 K21.9 Gastro-esophageal reflux disease without Malissa Moeller, DO esophagitis 12/21/2018 N39.0 Urinary tract infection, site not specified Malissa Moeller DO 12/21/2018 Z30.09 Encounter for other general counseling and Malissa Moeller DO advice on contraception 12/21/2018 Z12.4 Encounter for screening for malignant neoplasm Malissa Moeller DO of cervix 12/17/2018 K21.9 Gastro-esophageal reflux disease without Sandrarafael Carrillo, GROUP MARKETING VP esophagitis 12/17/2018 R14.0 Abdominal distension (gaseous) Sandra Carrillo, GROUP MARKETING VP 12/17/2018 F41.9 Anxiety disorder, unspecified Sandra Carrillo, GROUP MARKETING VP 12/11/2018 N39.0 Urinary tract infection, site not specified Nurse Visit [place] 11/26/2018 K21.0 Gastro-esophageal reflux disease with Sandra Carrillo, GROUP MARKETING VP esophagitis 11/26/2018 F41.9 Anxiety disorder, unspecified Sandra Carrillo, GROUP MARKETING VP 11/26/2018 E04.1 Nontoxic single thyroid nodule Sandra Carrillo, GROUP MARKETING VP 11/26/2018 Q04.8 Other specified congenital malformations of Sandra Carrillo, GROUP MARKETING VP brain 11/26/2018 F17.210 Nicotine dependence, cigarettes, uncomplicated Sandra Carrillo, GROUP MARKETING VP 11/26/2018 R13.10 Dysphagia, unspecified Sandra Carrillo, GROUP MARKETING VP 11/23/2018 Q04.8 Other specified congenital malformations of Malissa Senchau , DO brain 11/23/2018 F41.9 Anxiety disorder, unspecified Malissa Moeller, DO 11/23/2018 E04.1 Nontoxic single thyroid nodule Malissa Moeller, 11/23/2018 F17.210 Nicotine dependence, cigarettes, uncomplicated Malissa oMeller DO Plan of Treatment Future Appointment(s):02/21/2019 9:00 am - Malissa Moeller DO at [facility] Internal Medicine - [address] 9:00 am - Papito Weber MD at [facility] Qpofyqlmsnwwijdp38/07/2020 9:00 am - Joey Riggins M.D. at [facility] Ajgfcp1712/21/2018 - Malissa Moeller, DOF41.9 Anxiety disorder, unspecifiedComments:increase guskjgifnsJ14.9 Gastro-esophageal reflux disease without nbxmapjguukC08.0 Urinary tract infection, site not specifiedNew Medication:Nitrofurantoin Macrocrystal 100 mg - take one daily as needed right after sexZ30.09 Encounter for other general counseling and advice on contraceptionNew Medication:Depo-Provera 150 mg/ml - inject 1ml Im every 3 monthsComments:pick pulling machine tender the depo from the pharmacy, call our office for a NURSE VISIT, and bring in the medicine moni nurse will give it to youZ12.4 Encounter for screening for malignant neoplasm of cervixNew Labs:Cytology, Ordered: Bacterial Vaginosis Smear, Ordered: 12/21/18GC/Chlamydia Amplified Rna, Ordered: 12/21/18 Functional Status Description No Information Available Mental Status Description No Information Available Referrals Refer to Reason for Referral Status Appt Date Joey Riggins MD Sent 05/10/2018 [address] [facility] [place] [address] [place] [address] [phone] [facility] Sent [address] [place] [address] [phone]
[2019-01-29] MEDS ORDERED: Aspirin 81 mg CHEW TAB* 81 MG TAB.CHEW PO ONE (12:00)
--- NOTE | 2019-01-29 12:00 | ED ---
HPI Chest Pain - HPI Summary HPI Summary: Pt is a 33 y/o F w hx GERD, tobacco use presenting to the ED with a chief complaint of chest pain initially onset about 2 days ago. The pain is constant but it woke her up twice last night, and she describes it as a crushing feeling. It is in her mid-lower sternal area and her epigastric abdomen, and radiates down her L arm to her 4th and 5th digits. She thought it was GERD but she tried medications w/o relief. She reports cough, weakness, nausea, lightheadedness/dizziness. She denies SOB and vomiting. No PARRY, orthopnea. No hx IA, DVT. - History of Current Complaint Chief Complaint: EDChestPainROMI Time Seen by Provider: 01/29/19 11:39 Hx Obtained From: Patient Onset/Duration: Started Hours Ago, Still Present Timing: Constant, Lasting Hours Initial Severity: Severe Current Severity: Severe Pain Intensity: 7 Pain Scale Used: 0-10 Numeric Chest Pain Location: Mid Sternal, Lower Sternal Chest Pain Radiates: Yes Chest Pain Radiates To:: Arm, Other - L hand, fingers Character: Crushing Aggravating Factor(s): Nothing Alleviating Factor(s): Nothing Associated Signs and Symptoms: Positive: Chest Pain, Weakness, Dizziness, Lightheadedness, Nausea, Cough, Abdominal Pain. Negative: Shortness of Breath, Vomiting - Allergy/Home Medications Allergies/Adverse Reactions: Allergies Allergy/AdvReac Type Severity Reaction Status Date / Time levofloxacin [From Levaquin] Allergy Rash Verified 12/20/18 12:02 nitrofurantoin Allergy Tachycardia Verified 12/20/18 12:02 sulfamethoxazole Allergy Rash Verified 12/20/18 12:02 [From Bactrim] trimethoprim [From Bactrim] Allergy Rash Verified 12/20/18 12:02 PMH/Surg Hx/FS Hx/Imm Hx Previously Healthy: Yes Endocrine/Hematology History: Reports: Hx Thyroid Disease - Thyroid nodules GI History: Reports: Hx Gastroesophageal Reflux Disease Sensory History: Denies: Hx Legally Blind, Hx Deafness Opthamlomology History: Denies: Hx Legally Blind Psychiatric History: Reports: Hx Panic Disorder - Surgical History Surgery Procedure, Year, and Place: cholecystectomy Infectious Disease History: No Infectious Disease History: Denies: Traveled Outside the [place] in Last 30 Days - Family History Known Family History: Positive: Cardiac Disease - [place], cardiomegaly, Diabetes, Other - Stroke - Social History Alcohol Use: None Hx Substance Use: No Substance Use Type: Reports: None Hx Tobacco Use: Yes Smoking Status (MU): Heavy Every Day Tobacco Smoker Type: Cigarettes Review of Systems Positive: Chest Pain Positive: Cough. Negative: Shortness Of Breath Positive: Abdominal Pain, Nausea. Negative: Vomiting Positive: Myalgia Neurological: Other - dizziness, lightheadedness Positive: Weakness All Other Systems Reviewed And Are Negative: Yes Physical Exam - Summary Physical Exam Summary: Constitutional: Well-developed, Well-nourished, Alert. (-) Distressed Skin: Warm, Dry HENT: Normocephalic; Atraumatic. Poor dentition. Eyes: Conjunctiva normal Neck: Musculoskeletal ROM normal neck. (-) JVD, (-) Stridor, (-) Nuchal rigidity Cardio: Rhythm regular, rate normal, Heart sounds normal; Intact distal pulses; Radial pulses are 2+ and symmetric. (-) Murmur Pulmonary/Chest wall: Effort normal. (-) Respiratory distress, (-) Wheezes, (-) Rales Abd: Soft, (-) tenderness, (-) Distension, (-) Guarding, (-) Rebound Musculoskeletal: (-) Edema Lymph: (-) Cervical adenopathy Neuro: Alert, Oriented x3 Psych: Mood and affect Normal Triage Information Reviewed: Yes Vital Signs On Initial Exam: Initial Vitals Temp Pulse Resp BP Pulse Ox 98.6 F 78 16 157/72 100 01/29/19 11:32 01/29/19 11:32 01/29/19 11:32 01/29/19 11:32 01/29/19 11:32 Vital Signs Reviewed: Yes Procedures - Sedation Patient Received Moderate/Deep Sedation with Procedure: No Diagnostics - Vital Signs Vital Signs Temp Pulse Resp BP Pulse Ox 01/29/19 11:32 98.6 F 78 16 157/72 100 - Laboratory Result Diagrams: 01/29/19 11:49 01/29/19 11:49 Lab Statement: Any lab studies that have been ordered have been reviewed, and results considered in the medical decision making process. - Radiology CXR Radiology Interpretation Completed By: Radiologist Summary of Radiographic Findings: No acute cardiopulmonary process by radiograph. ED physician has reviewed this report. - EKG 1130 Cardiac Rate: NL - 76bpm EKG Rhythm: Sinus Rhythm ST Segment: Normal Ectopy: None EKG Comparison: No Significant Change Summary of EKG Findings: An EKG at 1130 reveals normal sinus rhythm at 76bpm, nml axis, nml intervals, T-wave inversions in lead III and v1. No STEMI. No acute changes. No change from 02/26/2017. ED physician has reviewed and interpreted this report. Re-Evaluation - Re-Evaluation First Eval Re-Evaluation Time: 01:00 Change: Improved - Updated on neg labs, EKG and CXR. Feels better. Can f/u outpatient for stress Chest Pain Course/Dx - Course Course Of Treatment: 33 year-old female presents with chest pain. Chest Pain DDX: The patient is well appearing, with stable vitals. Given the patient's clinical presentation, highest on differential is atypical chest pain versus GERD. Although less likely, differential also includes the following: -- Pneumothorax: Equal breath sounds, story inconsistent since gradual onset of symptoms. CXR shows no evidence of pneumothorax. Unlikely. --Cardiac tamponade : The history and physical are not concerning for tamponade. No Pulsus Paradoxus , no tachypnea. Unlikely. --Mediastinitis or esophageal rupture: The history is not consistent, as the patient has had no recent history of significant wretching, instrumentation, or mediastinal surgeries. Unlikely. --Aortic dissection: The patient does not describe the classical tearing chest pain radiating into the back, and the CXR does not show mediastinal widening or other signs of aortic dissection. Unlikely. --PE: Vitals wnl (not hypoxic, tachycardic or tachypneic). PERC neg. --ACS: The initial EKG shows no ischemic changes. The initial troponin is not elevated. Heart score - HEART Score. Based on a HEART score of 2 the patient has a low risk (<2% chance) of major adverse cardiac event within the next 6 weeks. I explained to the patient that based on the work-up today, her risk of heart attack is low and that he/she will be discharged with outpatient follow-up. Strict return precautions were discussed regarding worsening chest pain, new / atypical pain, shortness of breath, or any other serious concerns. Patient endorsed understanding and has no questions at this time. Source --. Jeane BE, Joel AJ, Hui DELILAH, Cliff MA, Mast EG, Mosterd A, Veldkamp RF,. Shefali AJ, Angel R, Maren R, Shell SH, van Vannessa R, Chelle TP, van den Krista F,. Yasir MJ, Chalino JM , Chioma AW, Brenden PA. A prospective validation of. the HEART score for chest pain patients at the emergency department. Int J. Cardiol. 2013 Jan 3;168 (3):2153-8. 0-3: 2.5% risk of adverse cardiac event. In the HEART Score, these patients were discharged. (0.99% retrospective) (1.7% prospective). 4-6: 20.3% risk of adverse cardiac event, suggesting admission to the hospital. 11.6% (16.6 % prospective). =7: 72.7% risk of adverse cardiac event, suggesting early invasive measures with these patients. 65.2% (50.1% prospective) - Diagnoses Provider Diagnoses: Chest pain Discharge ED - Sign-Out/Discharge Documenting (check all that apply): Patient Departure - Discharge Plan Condition: Stable Disposition: HOME Patient Education Materials: Chest Pain (ED) Referrals: Malissa Moeller DO [Primary Care Provider] - Additional Instructions: You were seen in the emergency department for chest pain. Your EKG (heart tracing), labs and chest x-ray did not show any cause for pain. Important that you follow up with you primary care doctor in the next 1-2 days to help schedule an outpatient stress test. Please return to the emergency department for continued chest pain, trouble breathing, passing out, or if you're concerned. - Billing Disposition and Condition Condition: STABLE Disposition: Home - Attestation Statements Document Initiated by Peggyibvandana: Yes Documenting Scribe: Audra Durand Provider For Whom Aydee is Documenting (Include Credential): Cheryl Sequeira MD. Scribe Attestation: Audra Gaspar, scribed for Cheryl Sequeira MD. on 01/29/19 at 1306. Scribe Documentation Reviewed: Yes Provider Attestation: The documentation as recorded by the Audra horne accurately reflects the service I personally performed and the decisions made by me, Cheryl Sequeira MD. Status of Scribe Document: Viewed
[2019-01-29 12:08] LABS: INR 1.21 (0.82-1.09)
[2019-01-29 12:24] LABS: Albumin 4.6 g/dL (3.2-5.2); Albumin/Globulin Ratio 1.5 (1-3); BUN/Creatinine Ratio 8.7 (8-20); Calcium 9.4 mg/dL (8.6-10.3); EGFR African American 85.1 (>60); EGFR Non-African American 70.3 (>60); Globulin 3.1 g/dL (2-4); Potassium 3.4 mmol/L (3.5-5.0); Total Bilirubin 0.5 mg/dL (0.2-1.0); Total Protein 7.7 g/dL (6.4-8.9)
[2019-01-29 13:15] VITALS: BP 116/62
== END 2019-01-29 13:15 | disposition home or self-care (01) ==
LOC: ED 11:30
DX: R07.9 Chest pain, unspecified (principal); K21.9 Gastro-esophageal reflux disease without esophagitis; F17.210 Nicotine dependence, cigarettes, uncomplicated; Z90.49 Acquired absence of other specified parts of digestive tract; Z88.1 Allergy status to other antibiotic agents; Z88.2 Allergy status to sulfonamides
CPT/HCPCS: 36415; 71046; 80053; 84484; 84702; 85025; 85610; 93005; 99283; A9270-GY

== ENCOUNTER 2019-05-16 12:03 | Emergency (ER) | payer OTHER ==
[2019-05-16 12:32] VITALS: BP 139/86
[2019-05-16 12:45] LABS: Influenza A Molecular POSITIVE (Negative)
--- NOTE | 2019-05-16 14:42 | ED ---
Influenza-Like Illness - HPI Summary HPI Summary: 34-year-old female presents to the emergency Department today with chief complaints of 2 days of cough, nasal congestion, fever, myalgia, sore throat, headache. Patient has been taking xmtp-nxt-xjvbcpr cold medicine for his symptoms with minimal relief. Patient's family members have recently diagnosed with influenza A and B. Patient's child is currently with her in the emergency department as a patient as well and is currently presenting with the same symptoms. Patient denies chest pain, abdominal pain, nausea, vomiting, diarrhea , pain with urination, rash. - History of Current Complaint Chief Complaint: EDFluSymptoms Time Seen by Provider: 05/16/19 14:34 Hx Obtained From: Patient Onset/Duration: Gradual Onset Associated Signs & Symptoms: Fever, Myalgia, Cough, Sore Throat Related Hx: Possible Flu/Infectious Exposure - Allergy/Home Medications Allergies/Adverse Reactions: Allergies Allergy/AdvReac Type Severity Reaction Status Date / Time levofloxacin [From Levaquin] Allergy Rash Verified 05/16/19 12:32 nitrofurantoin Allergy Tachycardia Verified 05/16/19 12:32 sulfamethoxazole Allergy Rash Verified 05/16/19 12:32 [From Bactrim] trimethoprim [From Bactrim] Allergy Rash Verified 05/16/19 12:32 Home Medications: Home Medications Albuterol HFA INHALER* [Ventolin HFA Inhaler*] 2 puff INH Q4H PRN 05/16/19 [ History Confirmed 05/16/19] PMH/Surg Hx/FS Hx/Imm Hx Endocrine/Hematology History: Reports: Hx Thyroid Disease - Thyroid nodules GI History: Reports: Hx Gastroesophageal Reflux Disease Sensory History: Denies: Hx Legally Blind, Hx Deafness Opthamlomology History: Denies: Hx Legally Blind Psychiatric History: Reports: Hx Panic Disorder - Surgical History Surgery Procedure, Year, and Place: cholecystectomy Infectious Disease History: Yes Infectious Disease History: Denies: Traveled Outside the [place] in Last 30 Days - Family History Known Family History: Positive: Cardiac Disease - CT, cardiomegaly, Diabetes, Other - Stroke - Social History Alcohol Use: None Hx Substance Use: No Substance Use Type: Reports: None Hx Tobacco Use: Yes Smoking Status (MU): Heavy Every Day Tobacco Smoker Type: Cigarettes Review of Systems Positive: Fever, Fatigue Positive: Sore Throat, Nasal Discharge Cardiovascular: Negative Positive: Cough Gastrointestinal: Negative Genitourinary: Negative Positive: Myalgia Skin: Negative Positive: Headache Psychological: Normal All Other Systems Reviewed And Are Negative: Yes Physical Exam Triage Information Reviewed: Yes Vital Signs On Initial Exam: Initial Vitals Temp Pulse Resp BP Pulse Ox 99.4 F 89 20 139/86 97 05/16/19 12:25 05/16/19 12:25 05/16/19 12:25 05/16/19 12:25 05/16/19 12:25 Vital Signs Reviewed: Yes Appearance: Positive: Well-Appearing, No Pain Distress, Well-Nourished Skin: Positive: Warm, Skin Color Reflects Adequate Perfusion Eyes: Positive: EOMI, ELGIN ENT: Positive: Hearing grossly normal Respiratory/Lung Sounds: Positive: Clear to Auscultation, Breath Sounds Present Cardiovascular: Positive: RRR, S1, S2 Musculoskeletal: Positive: Strength/ROM Intact Neurological: Positive: Sensory/Motor Intact, Alert, Oriented to Person Place, Time, Normal Gait, Facial Symmetry, Speech Normal Psychiatric: Positive: Normal, Affect/Mood Appropriate AVPU Assessment: Alert Procedures - Sedation Patient Received Moderate/Deep Sedation with Procedure: No Diagnostics - Vital Signs Vital Signs Temp Pulse Resp BP Pulse Ox 05/16/19 12:25 99.4 F 89 20 139/86 97 - Laboratory Lab Results: Lab Results 05/16/19 Range/Units 12:30 Influenza A (Rapid) Positive H (Negative) Influenza B (Rapid) Not Reportable Lab Statement: Any lab studies that have been ordered have been reviewed, and results considered in the medical decision making process. Flu Symptom Course/Dx - Course Course Of Treatment: patient was evaluated in the emergency department today from [place]-like illness. Vitals noted. Patient afebrile. No evidence of pneumonia. Influenza serology result is positive for influenza A. Patient was given a dose of Tamiflu in the emergency department as well as prescription for outpatient treatment. Patient discharged with outpatient follow-up. - Diagnoses Differential Diagnosis/HQI/PQRI: Positive: Bronchitis, Broncholiolitis, Influenza, Pneumonia, RSV, Upper Respiratory Infection Provider Diagnoses: Influenza A Discharge ED - Sign-Out/Discharge Documenting (check all that apply): Patient Departure - Discharge Plan Condition: Stable Disposition: HOME Patient Education Materials: Influenza (ED) Referrals: Malissa Moeller DO [Primary Care Provider] - 3 Days Additional Instructions: You were seen in the emergency department today and diagnosed with influenza. This is an upper respiratory virus which causes cough, muscle aches, fever, nausea, trouble breathing. Viruses are self-limiting and will go away on their own. Be sure to stay hydrated and rest. You may take ahqy-xdt-xowktbe decongestants as needed for your symptoms as well as NyQuil at night to improve sleep. Take Tylenol every 6 hours as needed for fever. Please see your primary care physician in 5 days for further evaluation and management. Please do not return to work or school until 24 hours after your fever breaks. Please return to the emergency department immediately if you develop any new or worsening symptoms. Take tamiflu every 12 hours for 5 days. - Billing Disposition and Condition Condition: STABLE Disposition: Home
[2019-05-16] MEDS ORDERED: Oseltamivir CAP* 75 MG CAP PO ONE (14:43)
== END 2019-05-16 15:14 | disposition home or self-care (01) ==
LOC: ED 12:03
DX: J10.1 Influenza due to other identified influenza virus with other respiratory manifestations (principal); R50.9 Fever, unspecified; J02.9 Acute pharyngitis, unspecified; E03.9 Hypothyroidism, unspecified; R05 Cough; F17.210 Nicotine dependence, cigarettes, uncomplicated; K21.9 Gastro-esophageal reflux disease without esophagitis
CPT/HCPCS: 99282; A9270-GY

== ENCOUNTER 2019-05-17 09:33 | Emergency (ER) | payer OTHER ==
--- NOTE | 2019-05-17 10:28 | ED ---
HPI Chest Pain - HPI Summary HPI Summary: 34-year-old female with a significant past medical history of GERD, Chiari malformation, diagnosed with influenza yesterday presents to the emergency department today complaining of a burning 4 out of 10 sternal chest pressure which began at rest when she woke up in the middle of the night which lasted approximately 3 minutes and occurred in multiple episodes. Patient states this chest pain radiated through to her back. Patient states upon arrival to the emergency department she doesn't significant pain however she does feel a burning sensation. Patient did not have any associated nausea, vomiting, lightheadedness, arm pain, jaw pain, abdominal pain with her chest pain. Patient denies rash, pain with urination. Surgical history and family history is noncontributory. Patient endorses family history of heart attacks. - History of Current Complaint Chief Complaint: EDChestPainROMI Time Seen by Provider: 05/17/19 10:28 Hx Obtained From: Patient Onset/Duration: Started Hours Ago Timing: Intermittent, Lasting Minutes Initial Severity: Moderate Current Severity: Mild Pain Intensity: 6 Pain Scale Used: 0-10 Numeric Chest Pain Location: Mid Sternal Chest Pain Radiates: Yes Chest Pain Radiates To:: Back Character: Cough, Productive Alleviating Factor(s): Rest Associated Signs and Symptoms: Positive: Chest Pain, Fever, Productive Cough, Nasal Congestion - Allergy/Home Medications Allergies/Adverse Reactions: Allergies Allergy/AdvReac Type Severity Reaction Status Date / Time levofloxacin [From Levaquin] Allergy Rash Verified 05/17/19 09:40 nitrofurantoin Allergy Tachycardia Verified 05/17/19 09:40 sulfamethoxazole Allergy Rash Verified 05/17/19 09:40 [From Bactrim] trimethoprim [From Bactrim] Allergy Rash Verified 05/17/19 09:40 Home Medications: Home Medications Oseltamivir CAP* [Tamiflu CAP*] 30 mg PO DAILY 05/17/19 [History Confirmed 05/17] PMH/Surg Hx/FS Hx/Imm Hx Endocrine/Hematology History: Reports: Hx Thyroid Disease - Thyroid nodules GI History: Reports: Hx Gastroesophageal Reflux Disease Sensory History: Denies: Hx Legally Blind, Hx Deafness Opthamlomology History: Denies: Hx Legally Blind Psychiatric History: Reports: Hx Panic Disorder - Surgical History Surgery Procedure, Year, and Place: cholecystectomy Infectious Disease History: Yes Infectious Disease History: Denies: Traveled Outside the [place] in Last 30 Days - Family History Known Family History: Positive: Cardiac Disease - [place], cardiomegaly, Diabetes, Other - Stroke - Social History Alcohol Use: None Hx Substance Use: No Substance Use Type: Reports: None Hx Tobacco Use: Yes Smoking Status (MU): Heavy Every Day Tobacco Smoker Type: Cigarettes Review of Systems Positive: Fever Eyes: Negative ENT: Negative Positive: Chest Pain Positive: Shortness Of Breath, Cough Gastrointestinal: Negative Genitourinary: Negative Positive: Myalgia Skin: Negative Neurological/Mental Status: Negative Psychological: Normal All Other Systems Reviewed And Are Negative: Yes Physical Exam Triage Information Reviewed: Yes Vital Signs On Initial Exam: Initial Vitals Temp Pulse Resp BP Pulse Ox 98.0 F 79 18 127/75 99 05/17/19 09:35 05/17/19 09:35 05/17/19 09:35 05/17/19 09:35 05/17/19 09:35 Vital Signs Reviewed: Yes Appearance: Positive: Well-Appearing, No Pain Distress, Well-Nourished Skin: Positive: Warm, Skin Color Reflects Adequate Perfusion Eyes: Positive: EOMI, ELGIN ENT: Positive: Hearing grossly normal Respiratory/Lung Sounds: Positive: Clear to Auscultation, Breath Sounds Present Cardiovascular: Positive: RRR, S1, S2 Abdomen Description: Positive: Nontender, Soft Bowel Sounds: Positive: Present Musculoskeletal: Positive: Strength/ROM Intact Neurological: Positive: Sensory/Motor Intact, Alert, Oriented to Person Place, Time, Facial Symmetry, Speech Normal Psychiatric: Positive: Normal, Affect/Mood Appropriate AVPU Assessment: Alert Procedures - Sedation Patient Received Moderate/Deep Sedation with Procedure: No Diagnostics - Vital Signs Vital Signs Temp Pulse Resp BP Pulse Ox 05/17/19 09:35 98.0 F 79 18 127/75 99 - Laboratory Result Diagrams: 05/17/19 10:55 05/17/19 10:55 Lab Statement: Any lab studies that have been ordered have been reviewed, and results considered in the medical decision making process. Chest Pain Course/Dx - Course Course Of Treatment: Patient was evaluated in the emergency department today for chest pain. Patient was evaluated. Vitals noted. EKG was done probably which shows normal sinus rhythm at a rate of 81 bpm. No evidence of STEMI. There is T-wave inversion in lead V4 with T-wave flattening. Laboratory studies returned within normal limits with no evidence of leukocytosis or electrolyte abnormality. Chest x-ray returned showing no pathology. HEART score 2. Patient was given viscous lidocaine swallow as well as Maalox plus which significantly improved her symptoms. Patient appeared to not be experiencing any significant medical pathology requiring intervention at this time including pericarditis, myocardial infarction, endocarditis, pneumonia. Patient discharged with outpatient follow-up. - Chest Pain Differential Diagnosis/HQI/PQRI: Acute [place], ACS, Angina, CHF, Lower Respiratory Infection - Diagnoses Provider Diagnoses: Chest pain Discharge ED - Sign-Out/Discharge Documenting (check all that apply): Patient Departure - Discharge Plan Condition: Stable Disposition: HOME Patient Education Materials: Chest Pain (ED) Referrals: Malissa Moeller DO [Primary Care Provider] - 3 Days Additional Instructions: You were seen in the emergency department today due to chest pain. Laboratory studies were done as well as a chest x-ray which showed no evidence of acute medical pathology requiring intervention at this time. Although I am uncertain what is causing your chest pain, cardiac origin cannot be ruled out. Please follow-up with your primary care provider in 3-4 days for further evaluation and management. Please return to the emergency department immediately if you develop any new or worsening symptoms. - Billing Disposition and Condition Condition: STABLE Disposition: Home
[2019-05-17] MEDS ORDERED: Al Hydrox/Mg Hydrox/Simet LIQ* 30 ML UDC PO ONE (10:35)
[2019-05-17] MEDS ORDERED: Lidocaine 2% VISCOUS* 15 ML UDC PO ONE (10:35)
[2019-05-17 11:19] LABS: ABS Eosinophils 0.1 10^3/ul (0-0.6); ABS Lymphocytes 1.5 10^3/ul (1.0-4.8); ABS Monocytes 0.6 10^3/ul (0-0.8); Eosinophil % 1.5 %; Hematocrit 39 % (35-47); Hemoglobin 13.5 g/dL (12.0-16.0); Lymphocyte % 18.6 %; Mean Corpuscular HGB Conc 35 g/dL (31-36); Mean Corpuscular Hemoglobin 32 pg (27-31); Mean Corpuscular Volume 91 fL (80-97); Mean Platelet Volume 9.8 fL (7.4-10.4); Platelet Count 216 10^3/uL (150-450); Red Blood Count 4.29 10^6 /uL (3.70-4.87); Red Cell Distribution Width 13 % (10-15); White Blood Count 8.3 10^3/uL (3.5-10.8)
[2019-05-17 11:44] LABS: HCG Pregnancy < 0.60 mIU/mL
[2019-05-17 11:55] LABS: Albumin 4.3 g/dL (3.2-5.2); Anion Gap 8 mmol/L (2-11); CO2 Carbon Dioxide 25 mmol/L (22-32); Calcium 8.7 mg/dL (8.6-10.3); Chloride 105 mmol/L (101-111); Potassium 3.8 mmol/L (3.5-5.0); Sodium 138 mmol/L (135-145)
[2019-05-17 12:01] LABS: ALT 12 U/L (7-52); AST 15 U/L (13-39); Albumin/Globulin Ratio 1.4 (1-3); Alkaline Phosphatase 68 U/L (34-104); BUN/Creatinine Ratio 8.6 (8-20); Blood Urea Nitrogen 8 mg/dL (6-24); EGFR African American 83.5 (>60); Globulin 3.1 g/dL (2-4); Glucose 86 mg/dL (70-100); Total Protein 7.4 g/dL (6.4-8.9)
[2019-05-17 12:21] VITALS: BP 104/76
== END 2019-05-17 12:21 | disposition home or self-care (01) ==
LOC: ED 09:33
DX: R07.89 Other chest pain (principal); R50.9 Fever, unspecified; R05 Cough; R09.81 Nasal congestion; Z88.1 Allergy status to other antibiotic agents; Z88.2 Allergy status to sulfonamides; F17.210 Nicotine dependence, cigarettes, uncomplicated
CPT/HCPCS: 36415; 71046; 80053; 84484; 84702; 85025; 93005; 99283; A9270-GY